=== PATIENT | female | born 1950 | race Caucasian/White ===

== ENCOUNTER → 2016-10-23 | Outpatient (CLI) | payer MEDICARE, OTHER ==
[~2016-10-23] MED LIST: ASPIRIN81 M2 PO; Aspirin Chewable PO; CELEBREX200 MG PO; LASIX40 MG PO; METFORMIN HCL500 MG PO; Protonix PO; ZESTORETIC 20-1 EAC1 PO
== END | disposition home or self-care (01) ==
LOC: CDC 15:42
DX: M79.642 Pain in left hand (principal); M71.342 Other bursal cyst, left hand; R94.31 Abnormal electrocardiogram [ECG] [EKG]
CPT/HCPCS: 93000